=== PATIENT | female | born 1955 | race Caucasian/White ===

== ENCOUNTER 2017-08-20 11:39 | Emergency (ER) | payer OTHER ==
[~2017-08-20] VITALS: Ht 165.1 cm; Wt 70.3 kg
[2017-08-20] MEDS ORDERED: PROPRANOLOL HCL20 MG PO (12:02)
--- NOTE | 2017-08-21 12:34 | EKG ---
[facility] [address] [facility] [place] [address] Signed Poor data quality, interpretation may be adversely affected Normal sinus rhythm Nonspecific ST abnormality Abnormal ECG No previous ECGs available Confirmed by SAMSON YIN MD ([id number]) on 08/21/2017 12:34:12 PM Electronically Signed By: SAMSON YIN MD 08/21/17 1234 PATIENT NAME: ELMER RING FRANCHESCA Electrocardiogram DATE OF : 51 PHYSICIAN: SAMSON YIN MD REPORT #: [id number] REPORT IS CONFIDENTIAL AND NOT TO BE RELEASED WITHOUT AUTHORIZATION
== END 2017-08-20 13:35 | disposition home or self-care (01) ==
LOC: ED 11:39
DX: R00.2 Palpitations (principal); Z88.2 Allergy status to sulfonamides
CPT/HCPCS: 80053; 84443; 84484; 85025; 93005; 93010; 99283

== ENCOUNTER 2017-12-23 04:02 | Emergency (ER) | payer MEDICARE, OTHER ==
[~2017-12-23] VITALS: Ht 165.1 cm; Wt 70.3 kg
--- OUTSIDE RECORDS SUMMARY | ~2017-12-23 | XMS | Encounter Summary ---
Demographics + + + | Address | [address] | | | [place] [address] | + + + | Home Phone | | + + + | Preferred Language | Unknown | + + + | Marital Status | Single | + + + | Hinduism Affiliation | Unknown | + + + | Race | Unknown | + + + | Ethnic Group | Unknown | + + + Author + + + | Author | [facility] | | | and [place] | + + + | Organization | [facility] | | | and [place] | + + + | Address | Unknown | + + + | Phone | Unavailable | + + + Support + + + + + | Name | Relationship | Address | Phone | + + + + + | Israel Dietz | ECON | [address] | | | | | [place] | | | | | [address] | | + + + + + Care Team Providers + +------+ + | Care Pre Owned Sales Consultant Name | Role | Phone | + +------+ + | Nimo Ly MD | PCP | | + +------+ + Encounter Details +--------+ + + + + | Date | Type | Department | Care Team | Description | +--------+ + + + + | 09/27/ | Orders Only | [facility] | Arlene Spicer | Palpitation (Primary | | 2018 | | [facility] [place] | [address] | Dx) | | | | [address] | [address] | | | | | [address] [place] | [place] [address] | | | | | [address] | [phone] | | | | | [phone] | | | +--------+ + + + + Social History + +-------+ +--------+------+ | Tobacco Use | Types | Packs/Day | Years | Date | | | | | Used | | + +-------+ +--------+------+ | Never Assessed | | | | | + +-------+ +--------+------+ + + + | Sex Assigned at | Date Recorded | | | | + + + | Not on file | | + + + as of this encounter Plan of Treatment + +--------+ + + | Name | Priori | Associated Diagnoses | Order Schedule | | | ty | | | + +--------+ + + | Event Monitor - 4 Week | Routin | Palpitation | Expected: | | | e | | 09/27/2017, Expires: | | | | | 09/27/2018 | + +--------+ + + as of this encounter Results Event Monitor - Hookup (09/27/2017 1542) + +---------+ + + | Performing | Address | City/State/Zipcode | Phone Number | | Organization | | | | + +---------+ + + | [facility] | | | | + +---------+ + + in this encounter Visit Diagnoses + + | Diagnosis | + + | Palpitation - Primary | + + | Palpitations | + +"
--- OUTSIDE RECORDS SUMMARY | ~2017-12-23 | XMS | Encounter Summary ---
Demographics + + + | Address | [address] | | | [place] [address] | + + + | Home Phone | | + + + | Preferred Language | Unknown | + + + | Marital Status | Single | + + + | Baptist Affiliation | Unknown | + + + | Race | Unknown | + + + | Ethnic Group | Unknown | + + + Author + + + | Author | [facility] | | | and [place] | + + + | Organization | [facility] | | | and [place] | [...] [place] | | | | | [address] | | + + + + + Care Team Providers + +------+ + | Care Lineman Apprentice Name | Role | Phone | + [...] | | [address] | [place] [address] | | | | | [address] | [phone] | | | | | [phone] | | | +--------+ + + + [...]
--- OUTSIDE RECORDS SUMMARY | ~2017-12-23 | XMS | Encounter Summary ---
Demographics + + + | Address | [address] | | | [place] [address] | + + + | Home Phone | | + + + | Preferred Language | Unknown | + + + | Marital Status | Single | + + + | Taoism Affiliation | Unknown | + + + | Race | Unknown | + + + | Ethnic Group | Unknown | + + + Author + + + | Author | [facility] | | | and [place] | + + + | Organization | [facility] | | | and [place] [...] [place] | | | | | [address] | | + + + + + Care Team Providers + +------+ + | Care Charge Master Analyst Name | Role | Phone | + +------+ + | Nimo Ly MD | PCP | | + +------+ + Reason for Visit + + + | Reason | Comments | + + + | Palpitations | 4 week event monitor | + + + Encounter Details +--------+ + + + + | Date | Type | Department | Care Team | Description | +--------+ + + + + | 09/27/ | Documentati | [facility] | Arlene Spicer | Palpitations (4 week | | 2018 | on | [facility] [place] | [address] | event monitor ) | | | | [address], | [address] | | | | | [address] [place] [address] [place] | [place] [address] | | | | | [address] | [phone] | | | | | [phone] | | | +--------+ + + + [...] + + + as of this encounter Progress Notes Kirstin Gray, Pharmacognosist - 09/27/[address] Arlene Spicer patient was ref erred to [facility] to have a 4 week event monitor placed for palpitations. [place] Contacted Roderick Hughes, arrhythmia tech, who states life watch and preventice monitors would not be good for this patient as far as getting quality downloads. Roderick states a ZioPatch would be better. Contacted Dr. Spicer' office as they referred patient and placed order to start new referral and get auth or ZioPatchin this encounter Plan of Treatment Not on fileas of this encounter Visit Diagnoses Not on filein this encounter"
--- OUTSIDE RECORDS SUMMARY | ~2017-12-23 | XMS | Encounter Summary ---
Demographics + + + | Address | [address] | | | [place] [address] | + + + | Home Phone | | + + + | Preferred Language | Unknown | + + + | Marital Status | Single | + + + | Jehovah'S Witness Affiliation | Unknown | + + + | Race | Unknown | + + + | Ethnic Group | Unknown | + + + Author + + + | Author | [facility] | + + + | Organization | [facility] | + + + | Address | Unknown | + + + | Phone | Unavailable | + + + Support + + +---------+ + | Name | Relationship | Address | Phone | + + +---------+ + | Zain Dietz | ECON | Unknown | | + + +---------+ + Care Team Providers + +------+ + | Care Registered Radiographer Name | Role | Phone | + +------+ + PCP | Unavailable | + +------+ + Reason for Visit +--------+ + | Reason | Comments | +--------+ + | Other | [facility] records | +--------+ + Encounter Details +--------+ + + + + | Date | Type | Department | Care Team | Description | +--------+ + + + + | 12/20/ | Documentati | [facility] [place] | Sulema Jones MA | Other ([facility] | | 2018 | on Only | [address] | | records) | | | | [address] | | | | | | [place] | | | | | | [address] | | | | | | [phone] | | | +--------+ + + + [...] as of this encounter Plan of Treatment +--------+ + + + + | Date | Type | Specialty | Care Team | Description | +--------+ + + + + | 01/06/ | Initial | Cardiology | Tamir Beverly, | | | 2017 | consult | | MD [address] | | | | | | [place], | | | | | | [place] [address] | | | | | | [phone] | | | | | | | | +--------+ + + + + as of this encounter Visit Diagnoses Not on filein this encounter"
--- OUTSIDE RECORDS SUMMARY | ~2017-12-23 | XMS | Clinical Summary ---
Demographics + + + | Address | [address] | | | [place] [address] | + + + | Home Phone | | + + + | Preferred Language | Unknown | + + + | Marital Status | Single | + + + | Mormonism Affiliation | Unknown | + + + | Race | Unknown | + + + | Ethnic Group | Unknown | + + + Author + + + | Author | [facility] | + + + | Organization | [facility] | + + + | Address | Unknown | + + + | Phone | Unavailable | + + + Support + + +---------+ + | Name | Relationship | Address | Phone | + + +---------+ + | Zain Dietz | ECON | Unknown | | + + +---------+ + Care Team Providers + +------+ + | Care Core Blower Operator Name | Role | Phone | + +------+ + PP | Unavailable | + +------+ + Allergies Not on File Current Medications Not on file Active Problems Not on file Encounters +--------+ + + + + | Date | Type | Specialty | Care Team | Description | +--------+ + + + + | 12/20/ | Documentati | | Sulema Jones MA | Other ([facility] | | 2018 | on Only | | | records) | +--------+ + + + + from Last 3 Months Social History + +-------+ +--------+------+ | Tobacco [...] on file | | + + + Plan of Treatment +--------+ + + + + | Date | Type | Specialty | Care Team | Description | +--------+ + + + + | 01/06/ | Initial | | Tamir Beverly, | | | 2018 | consult | | MD [address] | | | | | | [place], | | | | | | [place] [address] | | | | | | [phone] | | | | | | | | +--------+ + + + + Results Not on filefrom Last Months"
--- OUTSIDE RECORDS SUMMARY | ~2017-12-23 | XMS | Clinical Summary ---
Demographics + + + | Address | [address] | | | [place] [address] | + + + | Home Phone | | + + + | Preferred Language | Unknown | + + + | Marital Status | Single | + + + | Bahai Affiliation | Unknown | + + + | Race | Unknown | + + + | Ethnic Group | Unknown | + + + Author + + + | Author | [facility] | | | and [place] | + + + | Organization | [facility] | | | and [place] | + + + | Address | Unknown | + + + | Phone | Unavailable | + + + Support + + + + + | Name | Relationship | Address | Phone | + + + + + | Israel Dietz | ECON | [address] | | | | | [facility] [place] | | | | | [address] | | + + + + + Care Team Providers + +------+ + | Care Customer Experience Intern Name | Role | Phone | + +------+ + | Nimo Ly MD | PP | | + +------+ + Allergies Not on File Current Medications Not on file Active Problems Not on file Encounters +--------+ + + + + | Date | Type | Specialty | Care Team | Description | +--------+ + + + + | 09/27/ | Documentati | | Arlene Spicer | Palpitations (4 week | | 2018 | on | | [address] | event monitor ) | +--------+ + + + + | 09/27/ | Orders Only | | Arlene Spicer | Palpitation (Primary | | 2018 | | | [address] | Dx) | +--------+ + + + + from [...] | + + + Plan of Treatment + + + + + | Health Maintenance | Due Date | Last Done | Comments | + + + + + | Hepatitis C | | | | | Screening | 3 | | | + + + + + | Vaccine: | | | | | Dtap/Tdap/Td (1 - | 2 | | | | Tdap) | | | | + + + + + | Cervical Cancer | | | | | Screening (Pap) | 3 | | | + + + + + | Colorectal Cancer | | | | | Screening | 3 | | | | (Colonoscopy) | | | | + + + + + | Vaccine: Zoster (1 | | | | | of 2) | 3 | | | + + + + + | Vaccine: Influenza | | | | | (#1) | 8 | | | + + + + + | BREAST CANCER | | 08/05/2017, 07/12/2017, | | | SCREENING (MAMM Q2 | 0 | 07/24/2010 | | | YEARS 50-74) | | | | + + + + + Procedures + +--------+ + + + | Procedure Name | Priori | Date/Time | Associated Diagnosis | Comments | | | ty | | | | + +--------+ + + + | CV EVENT MONITOR - | Routin | 09/27/2017 | Palpitation | | | HOOKUP | e | 1542 PDT | | | + +--------+ + + + from Last 3 Months Results Event Monitor - Hookup (09/27/2017 1542) + +---------+ + + | Performing | Address | City/State/Zipcode | Phone Number | | Organization | | | | + +---------+ + + | [facility] | | | | + +---------+ + + from Last 3 Months Insurance + +--------+ +------+ +---------+ | Payer | Benefi | Subscriber | Type | Phone | Address | | | t Plan | ID | | | | | | / | | | | | | | Group | | | | | + +--------+ +------+ +---------+ | [facility] | PHP | [id number] | PPO | [phone] | | PLAN | PERSON | | | [phone] | | | | [place] | | | | | | | OPEN | | | | | | | OPTION | | | | | + +--------+ +------+ +---------+ + +--------+ +--------+ + + | Guarantor Name | Accoun | Relation to | Date | Phone | Billing Address | | | t Type | Patient | of | | | | | | | | | | + +--------+ +--------+ + + | ELMER RING I | Person | Self [birth year] Home: | [address] | | | al/Fam | | 1955 | [phone] | [place] [address] | | | perla | | | [phone] | | + +--------+ +--------+ + +"
--- OUTSIDE RECORDS SUMMARY | ~2017-12-23 | XMS | Encounter Summary ---
Demographics + + + | Address | [address] | | | [place] [address] | + + + | Home Phone | | + + + | Preferred Language | Unknown | + + + | Marital Status | Single | + + + | Jew Affiliation | Unknown | + + + | Race | Unknown | + + + | Ethnic Group | Unknown | + + + Author + + + | Author | [facility] | + + + | Organization | [facility] | + + + | Address | Unknown | + + + | Phone | Unavailable | + + + Support + + +---------+ + | Name | Relationship | Address | Phone | + + +---------+ + | Zani Dietz | ECON | Unknown | | + + +---------+ + Care Team Providers + +------+ + | Care Rn Testing Name | Role | Phone | + +------+ + PCP | Unavailable | + +------+ + Reason for Visit +--------+ + | Reason | Comments | +--------+ + | Other | [facility] records | +--------+ + Encounter Details +--------+ + + + + | Date | Type | Department | Care Team | Description | +--------+ + + + + | 12/20/ | Documentati | [facility] [place] | Sulema Jones MA | Other ([facility] | | 2018 | on Only | [address] | | records) | | | | [address] | | | | | | [place] | | | | | | [address] | | | | | | [phone] | | | +--------+ + + + [...] | | | | | | [address] [place], | | | | | | [place] [address] | | | | | | [phone] | | | | | | | | +--------+ + + + + as of this encounter Visit Diagnoses Not on filein this encounter"
--- OUTSIDE RECORDS SUMMARY | ~2017-12-23 | XMS | Clinical Summary ---
Demographics + + + | Address | [address] | | | [place] [address] | + + + | Home Phone | | + + + | Preferred Language | Unknown | + + + | Marital Status | Single | + + + | Latter-Day Affiliation | Unknown | + + + | Race | Unknown | + + + | Ethnic Group | Unknown | + + + Author + + + | Author | [facility] | | | and [place] | + + + | Organization | [facility] | | | and [place] | + + + | Address | Unknown | + + + | Phone | Unavailable | + + + Support + + + + + | Name | Relationship | Address | Phone | + + + + + | Israel Dietz | ECON | [address] | | | | | [facility] [place] | | | | | [address] | | + + + + + Care Team Providers + +------+ + | Care Box Lidder Name | Role | Phone | + [...] | | + +--------+ +------+ +---------+ | [facility] | PHP | [phone] | PPO | [phone] | | [...] | 1955 | [phone] | [place] [address] | | | perla | | | [address] | | + +--------+ +--------+ + +"
--- OUTSIDE RECORDS SUMMARY | ~2017-12-23 | XMS | Clinical Summary ---
Demographics + + + | Address | [address] | | | [place] [address] | + + + | Home Phone | | + + + | Preferred Language | Unknown | + + + | Marital Status | Single | + + + | Jewish Affiliation | Unknown | + + + | Race | Unknown | + + + | Ethnic Group | Unknown | + + + Author + + + | Author | [facility] | + + + | Organization | [facility] | + + + | Address | Unknown | + + + | Phone | Unavailable | + + + Support + + +---------+ + | Name | Relationship | Address | Phone | + + +---------+ + | Zain Dietz | ECON | Unknown | | + + +---------+ + Care Team Providers + +------+ + | Care Groundhand Name | Role | Phone | + [...] | | Sulema Jones MA | Other ([facility] | | 2018 | [...] | | | | | | [place] [address] | | | | | | [phone] | | | | | | | | +--------+ + + + + Results Not on filefrom Last Months"
--- OUTSIDE RECORDS SUMMARY | ~2017-12-23 | XMS | Encounter Summary ---
Demographics + + + | Address | [address] | | | [place] [address] | + + + | Home Phone | | + + + | Preferred Language | Unknown | + + + | Marital Status | Single | + + + | Samaritan Affiliation | Unknown | + + + | Race | Unknown | + + + | Ethnic Group | Unknown | + + + Author + + + | Author | [facility] | | | and [place] | + + + | Organization | [facility] | | | and [place] [...] [place] | | | | | [address] | | + + + + + Care Team Providers + +------+ + | Care Software Engineer Web Services Name | Role | Phone | + [...] | | | | | [address] | [place] [address] | | | | | [address] | [phone] | | | | | [phone] | | | +--------+ + + + [...] of this encounter Progress Notes Kirstin Gray, Donor Relations Officer - 09/27/[address] Arlene Spicer patient was ref erred to [facility] to have a 4 week event [...]
[~2017-12-23 04:02] MED LIST: PROPRANOLOL HCL20 MG PO
[2017-12-23] MEDS ORDERED: ELIQUIS5 MG PO (04:15)
[2017-12-23] MEDS ORDERED: METOPROLOL SUCC25 MG PO (04:15)
[2017-12-23] MEDS ORDERED: ESTRADIOL0.5 MG PO (04:15)
--- NOTE | 2017-12-24 14:30 | EKG ---
[facility] [address] [facility] [place] [address] Signed Atrial fibrillation with rapid ventricular response Low voltage QRS Abnormal ECG When compared with ECG of 20-AUG-2017 11:52, Atrial fibrillation has replaced Sinus rhythm Vent. rate has increased BY 40 BPM QRS voltage has decreased T wave inversion more evident in Inferior leads Confirmed by SKY ALEJO DO ([id number]) on 12/24/2017 2:29:59 PM Electronically Signed By: SKY ALEJO DO 12/24/17 1430 PATIENT NAME: ELMER RING Electrocardiogram DATE OF : 51 PHYSICIAN: SKY ALEJO DO REPORT #: [id number] REPORT IS CONFIDENTIAL AND NOT TO BE RELEASED WITHOUT AUTHORIZATION
== END 2017-12-23 07:20 | disposition home or self-care (01) ==
LOC: ED 04:02
DX: I48.91 Unspecified atrial fibrillation (principal); Z88.2 Allergy status to sulfonamides; Z79.899 Other long term (current) drug therapy
CPT/HCPCS: 71045; 80053; 83735; 84484; 85025; 85610; 85730; 93005; 93010; 96374; 99285

== ENCOUNTER 2019-05-18 14:09 | Emergency (ER) | payer MEDICARE, OTHER ==
[~2019-05-18] VITALS: Ht 165.1 cm; Wt 70.3 kg
[~2019-05-18 14:09] MED LIST changes: +ELIQUIS5 MG PO; +ESTRADIOL0.5 MG PO; +METOPROLOL SUCC25 MG PO
== END 2019-05-18 15:23 | disposition home or self-care (01) ==
LOC: ED 14:09
DX: S61.217A Laceration without foreign body of left little finger without damage to nail, initial encounter (principal); W26.8XXA Contact with other sharp object(s), not elsewhere classified, initial encounter

== ENCOUNTER 2020-05-13 12:01 | Day surgery (SDC) | payer MEDICARE, OTHER ==
[~2020-05-13] VITALS: Ht 170.2 cm; Wt 72.6 kg
[~2020-05-13 12:01] MED LIST changes: +FLECAINIDE ACET50 MG PO; +MULTI VITAMIN1 EACH PO; +PROBIOTIC1 EAC1 PO; +VITAMIN B122500 MCG PO
--- NOTE | 2020-05-13 14:46 | NUR ---
05/13/20 1446 Sherri Henderson 1433 PT ARRIVED IN PACU SLEEPY WITH NO C/O'S. ABD SOFT. 1445 AWAKENS TO VERBAL STIMULI, THEN FALLS BACK TO SLEEP.
--- NOTE | 2020-05-14 14:16 | PATH ---
[facility] [address] [place], [place] [address] Signed SPECIMEN(S): A RECTOSIGMOID POLYP SPECIMEN SOURCE: A. RECTOSIGMOID POLYP CLINICAL HISTORY: Screening colonoscopy with poss. biopsy; diverticulitis, polyp x 1. MICROSCOPIC DESCRIPTION: Histologic sections of all submitted blocks are examined by light microscopy. These findings, together with the gross examination, support the pathologic diagnosis. FINAL PATHOLOGIC DIAGNOSIS: Colon, rectosigmoid, polyp, polypectomy: - Hyperplastic polyp. - Negative for dysplasia or malignancy. NAL:cml:C2NR GROSS DESCRIPTION: The specimen, labeled "KK, 1," and designated on the requisition "rectosigmoid hyperplastic polyp," is received in formalin and consists of one padron soft tissue polypoid fragment that measures 0.3 cm in greatest dimension. The specimen is entirely submitted in cassette (A1). AT (under the direct supervision of a pathologist) The Gross Description was prepared using a voice recognition system. The report was reviewed for accuracy; however, sound-alike word errors, addition and/or deletions may occur. If there is any question about this report, please contact Client Services. PERFORMING LABORATORY: The technical component was performed by [facility], [address] [place] [id number] (Web Specialist: Adriane Lim MD; CLIA# [id number]). [facility], [address] [address] (CLIA# [id number]). Diagnostician: Tati Diaz MD Pathologist Electronically Signed 05/14/2020 PATIENT NAME: ELMER RING PATHOLOGY DATE OF : 51 REPORT #: [id number] PHYSICIAN: JUAN JOSÉ PATHOLOGY PCP: JOLYNN MANN MD REPORT IS CONFIDENTIAL AND NOT TO BE RELEASED WITHOUT AUTHORIZATION [address] [address] Signed Copies: ~ PATIENT NAME: ELMER RING PATHOLOGY DATE OF : 51 REPORT #: [id number] PHYSICIAN: JUAN JOSÉ PATHOLOGY PCP: JOLYNN MANN MD REPORT IS CONFIDENTIAL AND NOT TO BE RELEASED WITHOUT AUTHORIZATION
--- NOTE | 2020-05-14 15:23 | OR ---
[facility] [address] [place], [place] [address] Signed DATE OF OPERATION: 05/13/2020 SURGEON: Norberto Jackson MD PREOPERATIVE DIAGNOSES: 1. Colon surveillance, last colonoscopy in 2009 (negative). 2. History of cardiac ablation for atrial fibrillation. POSTOPERATIVE DIAGNOSES: 1. Minimal diverticular changes of sigmoid and left colon. 2. Hyperplastic polyp of rectosigmoid. PROCEDURES: Total colonoscopy to cecum with cold morcellation polypectomy x1. ANESTHESIA: Intravenous sedation, fentanyl 150 mcg and Versed 3 mg. INDICATIONS: This 65-year-old white woman, who is a patient of Dr. Ly and referred for colon surveillance. She underwent colonoscopy last in [address] Ang Celestin. The scope was said to be negative. She has no family history of colon cancer and currently free of symptoms. She did undergo cardiac ablation for atrial fibrillation and responded well to it, this was in March 2019. She is admitted to undergo colonoscopy. She understands the risks of bleeding, infection, and perforation. FINDINGS: The prep was good. Complete colonoscopy was undertaken of the cecum. Though she was reported to have a "redundant colon," did not seem excessively redundant on my examination today. There were a few scattered diverticula of the sigmoid. There was a small hyperplastic polyp of the rectosigmoid. DESCRIPTION OF PROCEDURE: The patient was brought to the endoscopy suite and placed in lateral decubitus position, given intravenous sedation to the point of slurred speech and nystagmus. Digital rectal examination was normal. An Olympus video colonoscope was passed into the rectum and manipulated throughout the colon, ultimately intubating the cecum itself. A few diverticula were seen upon passage of the scope in the sigmoid. The scope was withdrawn from the cecum and examination Electronically Signed By: NORBERTO JACKSON MD 05/14/20 1523 PATIENT NAME: ELMER RING OPERATIVE REPORT DATE OF : 51 REPORT #: [id number] PHYSICIAN: NORBERTO JACKSON MD PCP: NIMO LY MD REPORT IS CONFIDENTIAL AND NOT TO BE RELEASED WITHOUT AUTHORIZATION [facility] [address] [place], [place] [address] Signed throughout showed no sign of abnormality until approximately 15 cm from the anal verge, where a small hyperplastic polyp was noted, this was excised with cold morcellation technique. The scope was withdrawn. Retroflexed view was undertaken, showing no sign of abnormality. The scope was removed. The patient was taken to the recovery room in good condition. CONCLUDING DIAGNOSES: 1. Minimal diverticular changes. 2. Hyperplastic polyps, rectosigmoid. PLAN: Recommend repeat colonoscopy in 10 years or sooner if clinically indicated. She will return to the ongoing care of Dr. Ly. MD SO Mehta/FUENTESL /[id number] cc: Nimo Ly MD Copies: ~ Electronically Signed By: NORBERTO JACKSON MD 05/14/20 1523 PATIENT NAME: ELMER RING OPERATIVE REPORT DATE OF : 51 REPORT #: [id number] PHYSICIAN: NORBERTO JACKSON MD PCP: NIMO LY MD REPORT IS CONFIDENTIAL AND NOT TO BE RELEASED WITHOUT AUTHORIZATION
--- NOTE | 2020-05-14 22:02 | EKG ---
[facility] [address] [place], [place] [address] Signed Sinus bradycardia with sinus arrhythmia Otherwise normal ECG When compared with ECG of 23-FEB-2019 11:54, No significant change was found Confirmed by SAMSON YIN MD ([id number]) on 05/14/2020 10:02:14 PM Electronically Signed By: SAMSON YIN MD 05/14/202201 PATIENT NAME: JHONATHANELMER FRANCHESCA Electrocardiogram DATE OF : 51 PHYSICIAN: SAMSON YIN MD REPORT #: [id number] REPORT IS CONFIDENTIAL AND NOT TO BE RELEASED WITHOUT AUTHORIZATION
== END 2020-05-13 15:20 | disposition home or self-care (01) ==
LOC: OPS 12:01 → DS 12:08 → OPS 13:00 → DS 13:00 → OPS 15:20
PROVIDERS: ATTEND Surgery
PROC: 0DBE8ZZ Excision of Large Intestine, Via Natural or Artificial Opening Endoscopic (ICD-10-PCS; principal; 2020-05-13 13:00)
DX: Z12.11 Encounter for screening for malignant neoplasm of colon (principal); K63.5 Polyp of colon; K57.30 Diverticulosis of large intestine without perforation or abscess without bleeding; I48.91 Unspecified atrial fibrillation; Z79.01 Long term (current) use of anticoagulants; Z88.2 Allergy status to sulfonamides; Z87.891 Personal history of nicotine dependence; Z98.890 Other specified postprocedural states
CPT/HCPCS: 93005; 93010; 99153; G0500; J2250; J3010; J7121

== ENCOUNTER 2021-09-23 21:20 | Emergency (ER) | payer MEDICARE, OTHER ==
[~2021-09-23] VITALS: Ht 170.2 cm; Wt 72.6 kg
== END 2021-09-23 22:43 | disposition home or self-care (01) ==
LOC: ED 21:20
DX: H92.03 Otalgia, bilateral (principal); J02.9 Acute pharyngitis, unspecified; Z87.891 Personal history of nicotine dependence; Z88.2 Allergy status to sulfonamides; Z88.8 Allergy status to other drugs, medicaments and biological substances; Z79.01 Long term (current) use of anticoagulants; Z79.899 Other long term (current) drug therapy